=== PATIENT | male | born 1975 | race Asian ===

== ENCOUNTER 2018-06-07 17:08 | Emergency (ER) | payer SELFPAY ==
[2018-06-07 17:12] VITALS: BP 173/119; PULSE 116; RESP 20; TEMP 36.9; O2SAT 100
[2018-06-07 17:36] LABS: Abs Immature Grans 0.01 k/cumm (0.0-0.09); Absolute Basophil Count 0.07 k/cumm (0.0-0.2); Absolute Eosinophil Count 0.32 k/cumm (0.0-0.7); Absolute Lymphocyte Count 3.88 k/cumm (1.2-3.4); Absolute Monocyte Count 0.43 k/cumm (0.11-0.7); Absolute Neutrophil Count 3.83 k/cumm (1.2-6.7); Basophils % 0.8; Eosinophils % 3.7; HCT 43.1 % (40.0-50.0); HGB 14.8 g/dL (13.5-17.5); Immature Grans % 0.1; Lymphocytes % 45.4; Mean Corp. HGB Concentration 34.3 g/dL (32.0-36.0); Mean Corpuscular Hemoglobin 26.7 pg (27.0-33.0); Mean Corpuscular Volume 77.8 fL (80-95); Mean Platelet Volume 8.2 fL (8.0-11.0); Platelet Count 301 x1000/uL (130-400); RBC 5.54 m/cumm (4.50-6.00); RBC Distribution Width 13.5 % (11.8-14.1); White Blood Cell Count 8.54 k/cumm (4.4-10.8)
[2018-06-07 17:48] LABS: INR 0.9 (0.9-1.1); PTT Activated 24.7 sec (21.0-31.4); Prothrombin Time 9.3 sec (9.3-11.0)
[2018-06-07 17:50] LABS: ALT 54 U/L (12-78); AST 59 U/L (15-37); Albumin 4.4 g/dL (3.4-5.0); Alkaline Phosphatase 105 U/L (46-116); Anion Gap 12.9 mmol/L (3-11); BUN 4 mg/dL (7-18); Bilirubin, Total 0.4 mg/dL (0.2-1.0); CO2 28.1 mmol/L (21.0-32.0); CREATININE 0.96 mg/dL (0.70-1.30); Chloride 102 mmol/L (98-107); Glucose 112 mg/dL (70-100); Lipase 81 U/L (73-393); Potassium 3.5 mmol/L (3.5-5.1); Sodium 143 mmol/L (136-145); Total Protein 8.7 g/dL (6.4-8.2)
[2018-06-07] MEDS: Omnipaque 350 MG/ML 100 ML BTL IJ (17:50)
[2018-06-07 17:55] LABS: Calcium 7.9 mg/dL (8.5-10.1); ETHANOL BLOOD 322.1 mg/dL (<3)
[2018-06-07] MEDS: Normal Saline Flush 10 ML SYR IVP (18:03)
--- NOTE | 2018-06-07 18:03 | DI.CT_ITS ---
SYMPTOM/DIAGNOSIS: LLQ PAIN, GI BLEED ABDOMEN AND PELVIC CT: CT examination of the abdomen and pelvis was performed with intravenous administration of 100 cc's of Omnipaque 350. The lung bases are clear. The liver appears normal. There is no evidence of bowel obstruction. A moderate quantity of gas and stool is scattered throughout the colon and would be consistent with constipation. There is no evidence of diverticulosis or diverticulitis. The bladder is intact. The reproductive organs as visualized are unremarkable. There is no evidence of free air or free fluid in the intraperitoneal space. No acute bony abnormality is seen. The soft tissues are unremarkable. There is no evidence of an aortic aneurysm. There is no evidence of adenopathy. SUMMARY: No evidence of an acute abdomen. There is a moderate quantity of stool and gas in the colon suggesting constipation. There is no evidence of an acute appendix or bowel obstruction, perforation or abscess.
--- NOTE | 2018-06-07 18:20 | DI.VRAD_ITS ---
EXAM: CT Abdomen and Pelvis With Contrast EXAM DATE/TIME: 06/07/2018 5:21 PM CLINICAL HISTORY: 42 years old, male; Signs and symptoms; Other: Llq pain, gi bleed TECHNIQUE: Imaging protocol: Axial computed tomography images of the abdomen and pelvis with intravenous contrast. Coronal and sagittal reformatted images were created and reviewed. Radiation optimization: All CT scans at this facility use at least one of these dose optimization techniques: automated exposure control; mA and/or kV adjustment per patient size (includes targeted exams where dose is matched to clinical indication); or iterative reconstruction. Contrast material: OMNIPQUE 350; Contrast volume: 100 ml; Contrast route: IV; COMPARISON: No relevant prior studies available. FINDINGS: Lower thorax: Heart size normal. Visualized lug bases are clear. ABDOMEN: Liver: Normal size and contour. No mass lesions. Gallbladder and bile ducts: Normal. No calcified stones. No ductal dilation. Pancreas: Normal. No inflammatory changes or ductal dilation. Spleen: Normal. No splenomegaly. Adrenals: Normal. No adrenal mass. Kidneys and ureters: Normal. No hydronephrosis or hydroureter. No urinary tract stones are identified. Stomach and bowel: The visualized distal esophagus and stomach are unremarkable. The small bowel is unremarkable. Moderate gas and stool distributed throughout the colon suggesting constipation. The distalmost colon is largely contracted, limiting its assessment. No evidence of diverticulosis or diverticulitis. Appendix: Normal. No evidence of appendicitis. PELVIS: Bladder: Unremarkable as visualized. Reproductive: Unremarkable as visualized. ABDOMEN and PELVIS: Intraperitoneal space: No free fluid or air. Bones/joints: No acute osseous abnormalities. Soft tissues: Unremarkable. Vasculature: Normal. No abdominal aortic aneurysm. Lymph nodes: No adenopathy. IMPRESSION: 1. No acute process is evident. 2. Moderate stool in the mid and proximal colon suggesting constipation. Normal appendix. No evidence of bowel obstruction, perforation, or abscess. Dictated and Authenticated by: Warren Akbar MD. Ordering:JOSE Mahan MD
[2018-06-07 19:03] VITALS: BP 149/98; PULSE 68; RESP 18; O2SAT 99
--- NOTE | 2018-06-07 19:04 | NUR.NOTE ---
Nursing Note: Assumed care of pt. Report from RENAY Souza. Pt is a/o x 4 and wants to go home. Pt denies any pain but family and friends are saying otherwise. He is afraid if he has pain he will have to stay longer.
--- NOTE | 2018-06-07 19:41 | W.ED.GENAD ---
Discharge Plan Disposition Patient Disposition: HOME Condition: Stable Discharge Details Chief Complaint: GI Bleed Clinical Impression: Rectal bleeding Primary Care Provider: None,None ED Provider: Negrito Rivera Home Meds and New Rx's Prescriptions: No Action acetaminophen 325 mg Tablet 650 mg PO DAILY RF: 0 Discharge Instructions Instructions: Rectal Bleeding (ED) Additional Instructions: Return immediately to the emergency department if you have any dizziness or lightheadedness, significant or worsening rectal bleeding, or any persistent increase in pain or if you start having a fever. Otherwise you should stay well-hydrated and start using Metamucil. If you continue to have these episodes it is recommended that you follow-up with general surgery for further testing. Please call their office number for arrangement of this appointment. Referrals: Mahsa Brennan MD [ [facility] STAFF PHYSICIAN] - Discharge Data Discharge Date/Time-TO BE ENTERED AT DEPARTURE: 06/07/18 19:58 Medical Decision Making Patient presenting to the emergency department for chief complaint of GI bleeding. Patient states that this is been going on for years and today family made him come to the emergency department for evaluation. Patient denies any lightheadedness syncope shortness of breath or chest pain. Patient states that bleeding is bright red and only last for a couple days. Patient does state some occasional left quadrant abdominal pain but denies any rectal pain or discomfort. Patient does state that he has had a couple beers before coming in. Physical exam shows a nonsurgical abdomen with mild tenderness to the left lower quadrant, mild tachycardia, otherwise benign examination. Patient did refuse rectal examination and states understanding that possible diagnosis of exact problem may not be made without full physical examination. plan to check labs and CT scan. Review of labs show no anemia, and electrolyte abnormalities that I attribute to some dehydration along with patient being intoxicated.. Review of CT scan and radiologist dictation shows No evidence of an acute abdomen. There is a moderate quantity of stool and gas in the colon suggesting constipation. There is no evidence of an acute appendix or bowel obstruction, perforation or abscess. Given moderate quantity of stool and gas suggesting constipation and rectal bleeding I am concerned about possible internal hemorrhoid or other rectal source of bleeding. Patient again refused rectal examination after discussion of findings. Patient was informed that he should follow-up with general surgery for reassessment and possible scheduling of colonoscopy to rule out other causes of his rectal bleeding. Patient is able to be safely discharged with sober family member which was present at time of discussion of findings and discharge information. Return precautions were discussed , after discussion of diagnosis and plan of care patient and family have no further needs, questions, or concerns and states clear understanding to return to the emergency department for any worsening symptoms. HPI General Mode of arrival: ambulatory. Date/Time Provider Initiated Documentation: 06/07/18 17:19. Limitations to Documentation: no limitations. Information obtained by: patient, family and RN notes reviewed. History of Present Illness 42 year old M presents to the emergency department with the chief complaint of GI bleeding, described as moderate, Quality is described as aching, and is localized to the abdomen. Patient started experiencing this day(s) (2) and it has been constant and intermittent. No relieving factors improve symptom(s), No exacerbating factors reported . Patient did receive the following treatments prior to arrival, none Related Data Home Medications Medication Instructions Recorded Confirmed acetaminophen 650 mg PO DAILY 06/07/18 06/07/18 Allergies Allergy/AdvReac Type Severity Reaction Status Date / Time No Known Allergies Allergy Unverified 06/07/18 17:16 General Stated Complaint: GI Bleed GINA: 2 Review of Systems Constitutional Denies chills, Denies fever(s) and Denies poor appetite ENT Denies vertigo and Denies dizziness Cardiovascular Denies chest pain, Denies syncope and Denies dyspnea Respiratory Denies cough and Denies dyspnea Gastrointestinal Reports as per HPI, Reports abdominal pain, Denies melena, Reports hematochezia, Denies change in bowel habits, Denies constipation, Denies diarrhea, Denies loose stools, Denies nausea, Denies vomiting and Denies hematemesis Genitourinary Denies hematuria, Denies difficulty urinating, Denies urinary hesitancy, Denies urinary incontinence and Denies urinary urgency Integumentary/Breasts Denies rash Neurologic Denies vertigo, Denies dizziness and Denies syncope [facility] Social History Smoking/Tobacco Use Status: Current every day Alcohol Intake: current Alcohol Intake frequency: 0-2 drinks per day Alcohol type: beer Substance use type: does not use Do you feel safe at home: Yes Do you feel safe in your relationship?: Yes Exam Const General: cooperative Orientation: alert, awake and oriented x3 Resp Effort & Inspection: normal respiratory effort and able to speak in complete sentences Auscultation: clear to auscultation bilaterally Cardio Rate: regular rate Rhythm: regular rhythm Heart Sounds: S1 normal and S2 normal GI Palpation: soft, no hepatosplenomegaly, not firm, no guarding, no masses, no pulsatile masses, not rigid, no splenomegaly and tender in the LLQ; not in the epigastrum, not at McBurney's point, Hughes's sign negative and psoas sign negative Auscultation: normal bowel sounds Rectal Exam: other (patient refused) Back/Spine/Pelvis Back: no CVA tenderness Neuro General: alert, awake, oriented x3, gait normal and moves all extremities Course Vital Signs Temperature 36.9 C 06/07/18 17:12 Pulse 116 H 06/07/18 17:12 Respiratory Rate 20 06/07/18 17:12 Blood Pressure 173/119 H 06/07/18 17:12 Pulse Oximetry 100 06/07/18 17:12 Temperature 36.9 C 06/07/18 17:12 Temperature Source Temporal Artery Scan 06/07/18 17:12 Pulse 68 06/07/18 19:03 Respiratory Rate 18 06/07/18 19:03 Respiratory Effort Non-Labored 06/07/18 17:12 Blood Pressure 149/98 H 06/07/18 19:03 Blood Pressure Position Sitting 06/07/18 17:12 Pulse Oximetry 99 06/07/18 19:03 Oxygen Delivery Method Room Air 06/07/18 19:03 Oxygen Flow Rate 0 06/07/18 19:03 Pain Level 0 06/07/18 17:12 Lab/Test Results Lab/Test Results: Laboratory Tests Range/Units 06/07/18 06/07/18 06/07/18 17:25 17:25 17:25 WBC (4.4-10.8) k/cumm 8.54 RBC (4.50-6.00) m/cumm 5.54 Hgb (13.5-17.5) g/dL 14.8 Hct (40.0-50.0) % 43.1 MCV (80-95) fL 77.8 L MCH (27.0-33.0) pg 26.7 L MCHC (32.0-36.0) g/dL 34.3 RDW (11.8-14.1) % 13.5 Plt Count (130-400) x1000/uL 301 MPV (8.0-11.0) fL 8.2 Immature Gran % 0.1 Neutrophils % 45.0 Lymphocytes % 45.4 Monocytes % 5.0 Eosinophils % 3.7 Basophils % 0.8 Absolute Neutrophils (1.2-6.7) k/cumm 3.83 Absolute Lymphocytes (1.2-3.4) k/cumm 3.88 H Absolute Monocytes (0.11-0.7) k/cumm 0.43 Absolute Eosinophils (0.0-0.7) k/cumm 0.32 Absolute Basophils (0.0-0.2) k/cumm 0.07 PT (9.3-11.0) sec 9.3 INR (0.9-1.1) 0.9 APTT (21.0-31.4) sec 24.7 Sodium (136-145) mmol/L 143 Potassium (3.5-5.1) mmol/L 3.5 Chloride (98-107) mmol/L 102 Carbon Dioxide (21.0-32.0) mmol/L 28.1 Anion Gap (3-11) mmol/L 12.9 H BUN (7-18) mg/dL 4 L Creatinine (0.70-1.30) mg/dL 0.96 Estimated GFR/1.73 m2 (mL/min/1.73m2) >= 60.00 Glucose (70-100) mg/dL 112 H Calcium (8.5-10.1) mg/dL 7.9 L Total Bilirubin (0.2-1.0) mg/dL 0.4 AST (15-37) U/L 59 H ALT (12-78) U/L 54 Alkaline Phosphatase (46-116) U/L 105 Total Protein (6.4-8.2) g/dL 8.7 H Albumin (3.4-5.0) g/dL 4.4 Lipase (73-393) U/L 81 Ethyl Alcohol (<3) mg/dL 322.1 Patient ABO/Rh Antibody Screen Range/Units 06/07/18 17:25 WBC (4.4-10.8) k/cumm RBC (4.50-6.00) m/cumm Hgb (13.5-17.5) g/dL Hct (40.0-50.0) % MCV (80-95) fL MCH (27.0-33.0) pg MCHC (32.0-36.0) g/dL RDW (11.8-14.1) % Plt Count (130-400) x1000/uL MPV (8.0-11.0) fL Immature Gran % Neutrophils % Lymphocytes % Monocytes % Eosinophils % Basophils % Absolute Neutrophils (1.2-6.7) k/cumm Absolute Lymphocytes (1.2-3.4) k/cumm Absolute Monocytes (0.11-0.7) k/cumm Absolute Eosinophils (0.0-0.7) k/cumm Absolute Basophils (0.0-0.2) k/cumm PT (9.3-11.0) sec INR (0.9-1.1) APTT (21.0-31.4) sec Sodium (136-145) mmol/L Potassium (3.5-5.1) mmol/L Chloride (98-107) mmol/L Carbon Dioxide (21.0-32.0) mmol/L Anion Gap (3-11) mmol/L BUN (7-18) mg/dL Creatinine (0.70-1.30) mg/dL Estimated GFR/1.73 m2 (mL/min/1.73m2) Glucose (70-100) mg/dL Calcium (8.5-10.1) mg/dL Total Bilirubin (0.2-1.0) mg/dL AST (15-37) U/L ALT (12-78) U/L Alkaline Phosphatase (46-116) U/L Total Protein (6.4-8.2) g/dL Albumin (3.4-5.0) g/dL Lipase (73-393) U/L Ethyl Alcohol (<3) mg/dL Patient ABO/Rh B Positive Antibody Screen Negative
--- NOTE | 2018-06-07 19:46 | ED.GENADUL_ITS ---
Discharge Plan Disposition Patient Disposition: HOME Condition: Stable Discharge Details Chief Complaint: GI Bleed Clinical Impression: Rectal bleeding Primary Care Provider: None,None ED Provider: Negrito Rivera Home Meds and New Rx's Prescriptions: No Action acetaminophen 325 mg Tablet 650 mg PO DAILY RF: 0 Discharge Instructions Instructions: Rectal Bleeding (ED) Additional Instructions: Return immediately to the emergency department if you have any dizziness or lightheadedness, significant or worsening rectal bleeding, or any persistent increase in pain or if you start having a fever. Otherwise you should stay well-hydrated and start using Metamucil. If you continue to have these episodes it is recommended that you follow-up with general surgery for further testing. Please call their office number for arrangement of this appointment. Referrals: Mahsa Brennan MD [ [facility] STAFF PHYSICIAN] - Discharge Data Discharge Date/Time-TO BE ENTERED AT DEPARTURE: 06/07/18 19:58 Medical Decision Making Patient presenting to the emergency department for chief complaint of GI bleed ing. Patient states that this is been going on for years and today family made him come to the emergency department for evaluation. Patient denies any lightheadedness syncope shortness of breath or chest pain. Patient states that bleeding is bright red and only last for a couple days. Patient does state some occasional left quadrant abdominal pain but denies any rectal pain or discomfort. Patient does state that he has had a couple beers before coming in. Physical exam shows a nonsurgical abdomen with mild tenderness to the left lower quadrant, mild tachycardia, otherwise benign examination. Patient did refuse rectal examination and states understanding that possible diagnosis of exact problem may not be made without full physical examination. plan to check labs and CT scan. Review of labs show no anemia, and electrolyte abnormalities that I attribute to some dehydration along with patient being intoxicated.. Review of CT scan and radiologist dictation shows No evidence of an acute abdomen. There is a moderate quantity of stool and gas in the colon suggesting constipation. There is no evidence of an acute appendix or bowel obstruction, perforation or abscess. Given moderate quantity of stool and gas suggesting constipation and rectal bleeding I am concerned about possible internal hemorrhoid or other rectal source of bleeding. Patient again refused rectal examination after discussion of findings. Patient was informed that he should follow-up with general surgery for reassessment and possible scheduling of colonoscopy to rule out other causes of his rectal bleeding. Patient is able to be safely discharged with sober family member which was present at time of discussion of findings and discharge information. Return precautions were discussed , after discussion of diagnosis and plan of care patient and family have no further needs, questions, or concerns and states clear understanding to return to the emergency department for any worsening symptoms. HPI General Mode of arrival: ambulatory . Date/Time Provider Initiated Documentation: 06/07/18 17:19 . Limitations to Documentation: no limitations . Information obtained by: patient, family and RN notes reviewed . History of Present Illness 42 year old M presents to the emergency department with the chief complaint of GI bleeding, described as moderate, Quality is described as aching, and is localized to the abdomen. Patient started experiencing this day(s) (2) and it has been constant and intermittent. No relieving factors improve symptom(s), No exacerbating factors reported . Patient did receive the following treatments prior to arrival, none Related Data Home Medications Medication Instructions Recorded Confirmed acetaminophen 650 mg PO DAILY 06/07/18 06/07/18 Allergies Allergy/AdvReac Type Severity Reaction Status Date / Time No Known Allergies Allergy Unverified 06/07/18 17:16 General Stated Complaint: GI Bleed GINA: 2 Review of Systems Constitutional Denies chills, Denies fever(s) and Denies poor appetite ENT Denies vertigo and Denies dizziness Cardiovascular Denies chest pain, Denies syncope and Denies dyspnea Respiratory Denies cough and Denies dyspnea Gastrointestinal Reports as per HPI, Reports abdominal pain, Denies melena, Reports hematochezia, Denies change in bowel habits, Denies constipation, Denies diarrhea, Denies loose stools, Denies nausea, Denies vomiting and Denies hematemesis Genitourinary Denies hematuria, Denies difficulty urinating, Denies urinary hesitancy, Denies urinary incontinence and Denies urinary urgency Integumentary/Breasts Denies rash Neurologic Denies vertigo, Denies dizziness and Denies syncope [facility] Social History Smoking/Tobacco Use Status: Current every day Alcohol Intake: current Alcohol Intake frequency: 0-2 drinks per day Alcohol type: beer Substance use type: does not use Do you feel safe at home: Yes Do you feel safe in your relationship?: Yes Exam Const General: cooperative Orientation: alert, awake and oriented x3 Resp Effort & Inspection: normal respiratory effort and able to speak in complete sentences Auscultation: clear to auscultation bilaterally Cardio Rate: regular rate Rhythm: regular rhythm Heart Sounds: S1 normal and S2 normal GI Palpation: soft, no hepatosplenomegaly, not firm, no guarding, no masses, no pulsatile masses, not rigid, no splenomegaly and tender in the LLQ; not in the epigastrum, not at McBurney's point, Hughes's sign negative and psoas sign negative Auscultation: normal bowel sounds Rectal Exam: other (patient refused) Back/Spine/Pelvis Back: no CVA tenderness Neuro General: alert, awake, oriented x3, gait normal and moves all extremities Course Vital Signs Temperature 36.9 C 06/07/18 17:12 Pulse 116 H 06/07/18 17:12 Respiratory Rate 20 06/07/18 17:12 Blood Pressure 173/119 H 06/07/18 17:12 Pulse Oximetry 100 06/07/18 17:12 Temperature 36.9 C 06/07/18 17:12 Temperature Source Temporal Artery Scan 06/07/18 17:12 Pulse 68 06/07/18 19:03 Respiratory Rate 18 06/07/18 19:03 Respiratory Effort Non-Labored 06/07/18 17:12 Blood Pressure 149/98 H 06/07/18 19:03 Blood Pressure Position Sitting 06/07/18 17:12 Pulse Oximetry 99 06/07/18 19:03 Oxygen Delivery Method Room Air 06/07/18 19:03 Oxygen Flow Rate 0 06/07/18 19:03 Pain Level 0 06/07/18 17:12 Lab/Test Results Lab/Test Results: Laboratory Tests Range/Units 06/07/18 06/07/18 06/07/18 17:25 17:25 17:25 WBC (4.4-10.8) k/cumm 8.54 RBC (4.50-6.00) m/cumm 5.54 Hgb (13.5-17.5) g/dL 14.8 Hct (40.0-50.0) % 43.1 MCV (80-95) fL 77.8 L MCH (27.0-33.0) pg 26.7 L MCHC (32.0-36.0) g/dL 34.3 RDW (11.8-14.1) % 13.5 Plt Count (130-400) x1000/uL 301 MPV (8.0-11.0) fL 8.2 Immature Gran % 0.1 Neutrophils % 45.0 Lymphocytes % 45.4 Monocytes % 5.0 Eosinophils % 3.7 Basophils % 0.8 Absolute Neutrophils (1.2-6.7) k/cumm 3.83 Absolute Lymphocytes (1.2-3.4) k/cumm 3.88 H Absolute Monocytes (0.11-0.7) k/cumm 0.43 Absolute Eosinophils (0.0-0.7) k/cumm 0.32 Absolute Basophils (0.0-0.2) k/cumm 0.07 PT (9.3-11.0) sec 9.3 INR (0.9-1.1) 0.9 APTT (21.0-31.4) sec 24.7 Sodium (136-145) mmol/L 143 Potassium (3.5-5.1) mmol/L 3.5 Chloride (98-107) mmol/L 102 Carbon Dioxide (21.0-32.0) mmol/L 28.1 Anion Gap (3-11) mmol/L 12.9 H BUN (7-18) mg/dL 4 L Creatinine (0.70-1.30) mg/dL 0.96 Estimated GFR/1.73 m2 (mL/min/1.73m2) >= 60.00 Glucose (70-100) mg/dL 112 H Calcium (8.5-10.1) mg/dL 7.9 L Total Bilirubin (0.2-1.0) mg/dL 0.4 AST (15-37) U/L 59 H ALT (12-78) U/L 54 Alkaline Phosphatase (46-116) U/L 105 Total Protein (6.4-8.2) g/dL 8.7 H Albumin (3.4-5.0) g/dL 4.4 Lipase (73-393) U/L 81 Ethyl Alcohol (<3) mg/dL 322.1 Patient ABO/Rh Antibody Screen Range/Units 06/07/18 17:25 WBC (4.4-10.8) k/cumm RBC (4.50-6.00) m/cumm Hgb (13.5-17.5) g/dL Hct (40.0-50.0) % MCV (80-95) fL MCH (27.0-33.0) pg MCHC (32.0-36.0) g/dL RDW (11.8-14.1) % Plt Count (130-400) x1000/uL MPV (8.0-11.0) fL Immature Gran % Neutrophils % Lymphocytes % Monocytes % Eosinophils % Basophils % Absolute Neutrophils (1.2-6.7) k/cumm Absolute Lymphocytes (1.2-3.4) k/cumm Absolute Monocytes (0.11-0.7) k/cumm Absolute Eosinophils (0.0-0.7) k/cumm Absolute Basophils (0.0-0.2) k/cumm PT (9.3-11.0) sec INR (0.9-1.1) APTT (21.0-31.4) sec Sodium (136-145) mmol/L Potassium (3.5-5.1) mmol/L Chloride (98-107) mmol/L Carbon Dioxide (21.0-32.0) mmol/L Anion Gap (3-11) mmol/L BUN (7-18) mg/dL Creatinine (0.70-1.30) mg/dL Estimated GFR/1.73 m2 (mL/min/1.73m2) Glucose (70-100) mg/dL Calcium (8.5-10.1) mg/dL Total Bilirubin (0.2-1.0) mg/dL AST (15-37) U/L ALT (12-78) U/L Alkaline Phosphatase (46-116) U/L Total Protein (6.4-8.2) g/dL Albumin (3.4-5.0) g/dL Lipase (73-393) U/L Ethyl Alcohol (<3) mg/dL Patient ABO/Rh B Positive Antibody Screen Negative
[2018-06-07 19:52] VITALS: BP 141/91; PULSE 88; RESP 18; TEMP 37.1; O2SAT 100
== END 2018-06-07 19:58 | disposition home or self-care (01) ==
PROVIDERS: Emergency Provider Nurse Practitioner Family
DX: K62.5 Hemorrhage of anus and rectum (principal)
CPT/HCPCS: 36415; 80053; 83690; 86850; 86900; 86901; 99285; 74177; 80320; 85025; 85610; 85730; 99284; J3490